=== PATIENT | male | born 1950 | race Caucasian/White ===

== ENCOUNTER 2022-01-09 16:30 | Inpatient (IN) ==
[2022-01-09] MEDS ORDERED: ACETAMINOPHEN 500 MG TABLET PO STA (19:13)
[2022-01-09] MEDS ORDERED: SODIUM CHLORIDE 0.9% 1,000 ML IV STA (19:13)
[2022-01-09 19:32] LABS: Basophils % 0.7 % (0.0-0.8); Eosinophils % 0.7 % (0.00-10.9); Hematocrit 44.7 VOL% (42.0-52.0); Hemoglobin 15.3 GM/DL (14.0-18.0); Immature Granulocytes % 0.7 %; Immature Granulocytes Absolute 0.01 #; Lymphocytes # 0.3 10*3/uL (1.4-4.0); Lymphocytes % 24.1 % (21.2-54.2); Mean Corpuscular HGB Conc 34.2 GM/DL (32-36); Mean Corpuscular Volume 114.9 FL (87-102); Mean Platelet Volume 11.2 FL (9.6-12.0); Monocytes # 0.3 10*3/uL (0.11-0.8); Monocytes % 18.2 % (1.7-12.7); Neutrophils % 55.6 % (38.7-73.9); Platelet Count 99 T/CUMM (130-400); Red Blood Count 3.89 MC/CUMM (3.8-5.5); Red Cell Distribution Width 14.7 % (9.3-17.3); White Blood Count 1.4 T/CUMM (4-12)
[2022-01-09 19:37] LABS: Bilirubin,Urine Negative (Negative); Blood, Urine Trace mg/dL (Negative); Glucose,Urine (UA) Negative (Negative); Ketones,Urine Negative (Negative); Mucus,Urine Occasional /LPF (Occasional); Nitrite,Urine Negative (Negative); Protein,Urine Negative (Negative); RBC,Urine 1 /HPF (0-4); Urine Appearance Clear (Clear); Urine Color Yellow (Yellow); Urine Specific Gravity 1.015 (1.001-1.035); Urine Urobilinogen 0.2 eU/dL (<2.0); Urine pH 5.5 (4.5-8.0)
[2022-01-09 19:53] LABS: Alanine Aminotransferase 25 U/L (16-61); Albumin 3.4 G/DL (3.4-5.0); Alkaline Phosphatase 75 U/L (45-117); Aspartate Amino Transferase 26 U/L (0-37); Bilirubin,Total < 0.39 MG/DL (0.20-1.00); Blood Urea Nitrogen 10 MG/DL (7-18); Calcium 8.6 MG/DL (8.5-10.1); Carbon Dioxide 26 MMOL/L (21-32); Chloride 107 MMOL/L (98-107); Glucose 114 MG/DL (74-106); Osmolality,Calculated 272.8 MOS/KG (273-304); Potassium 4.1 MMOL/L (3.5-5.1); Sodium 137 MMOL/L (136-145); Total Protein 6.4 G/DL (6.4-8.2)
[2022-01-09] MEDS ORDERED: CEFEPIME 1,000 MG in SODIUM CHLORIDE 0.9% 100 ML IV STA (20:04)
[2022-01-09 20:37] LABS: Platelet Estimate Decreased
[2022-01-09] MEDS ORDERED: GLUCAGON 1 MG VIAL IM PRN (21:19)
[2022-01-09] MEDS ORDERED: ONDANSETRON 4 MG/2 ML VIAL IV PRN (21:31)
[2022-01-09] MEDS ORDERED: DEXTROSE 10% 250 ML BAG IV PRN (21:54)
[2022-01-09] MEDS ORDERED: ENOXAPARIN 40 MG/0.4 ML SYRINGE SUBCUT SCH (22:00)
[2022-01-09] MEDS: ZINC GLUCONATE 50 MG TABLET PO SCH (22:58)
[2022-01-09] MEDS: CETIRIZINE 10 MG TABLET PO SCH (22:58)
[2022-01-09] MEDS: CHOLECALCIFEROL 1,000 UNIT TABLET PO SCH (22:58)
[2022-01-09] MEDS: ASCORBIC ACID 500 MG TABLET PO SCH (22:58)
[2022-01-10] MEDS: CEFEPIME 1,000 MG in SODIUM CHLORIDE 0.9% 100 ML IV SCH ×6 (02:27→20:30)
[2022-01-10 05:08] LABS: Hematocrit 36.5 VOL% (42.0-52.0); Hemoglobin 12.2 GM/DL (14.0-18.0); Lymphocytes # 0.3 10*3/uL (1.4-4.0); Mean Corpuscular HGB Conc 33.4 GM/DL (32-36); Mean Corpuscular Volume 118.5 FL (87-102); Mean Platelet Volume 10.8 FL (9.6-12.0); Monocytes # 0.3 10*3/uL (0.11-0.8); Platelet Count 102 T/CUMM (130-400); Red Blood Count 3.08 MC/CUMM (3.8-5.5); Red Cell Distribution Width 14.9 % (9.3-17.3)
[2022-01-10 05:18] LABS: PT Patient Result 10.8 SECS (10.5-12.0)
[2022-01-10 05:27] LABS: Calcium 8.1 MG/DL (8.5-10.1)
[2022-01-10 05:31] LABS: Ferritin 1002.7 ng/mL (26-388)
[2022-01-10 05:42] LABS: Atypical Lymphocytes Few; Eosinophils 2 % (0-10); Lymphocytes 28 % (20-55); Macrocytosis 1+; Total Cells Counted 100
[2022-01-10 05:43] LABS: Ovalocytes Slight; Platelet Estimate Decreased; Polychromasia Slight
[2022-01-10] MEDS: LEVOTHYROXINE 88 MCG TABLET PO SCH (06:33)
[2022-01-10] MEDS: DOCUSATE SODIUM 100 MG CAPSULE PO SCH ×2 (08:59→20:30)
[2022-01-10] MEDS: PANTOPRAZOLE 40 MG TABLET PO SCH (08:59)
[2022-01-10] MEDS: ACETAMINOPHEN 325 MG TABLET PO PRN ×3 (08:59→20:34)
[2022-01-10] MEDS: ASCORBIC ACID 500 MG TABLET PO SCH ×2 (09:00→20:30)
[2022-01-10] MEDS: CHOLECALCIFEROL 1,000 UNIT TABLET PO SCH (09:00)
[2022-01-10] MEDS: ACYCLOVIR 200 MG CAPSULE PO SCH ×2 (09:01→20:34)
[2022-01-10] MEDS: CETIRIZINE 10 MG TABLET PO SCH (09:01)
[2022-01-10] MEDS: ZINC GLUCONATE 50 MG TABLET PO SCH (09:01)
[2022-01-10] MEDS: FILGRASTIM-SNDZ 480 MCG/0.8 ML SYRINGE SUBCUT SCH (09:52)
[2022-01-10] MEDS ORDERED: REMDESIVIR 200 MG in SODIUM CHLORIDE 0.9% 210 ML IV ONE (11:00)
[2022-01-10] MEDS: ROSUVASTATIN 10 MG TABLET PO SCH (20:30)
[2022-01-11] MEDS: CEFEPIME 1,000 MG in SODIUM CHLORIDE 0.9% 100 ML IV SCH ×4 (02:41→20:11)
[2022-01-11] MEDS ORDERED: PHENOL 1.4% THROAT SPRAY 177 ML BOTTLE PO PRN (03:27)
[2022-01-11 04:23] LABS: Basophils % 0.4 % (0.0-0.8); Hematocrit 38.5 VOL% (42.0-52.0); Hemoglobin 12.4 GM/DL (14.0-18.0); Immature Granulocytes % 1.1 %; Immature Granulocytes Absolute 0.05 #; Lymphocytes # 0.8 10*3/uL (1.4-4.0); Lymphocytes % 16.5 % (21.2-54.2); Mean Corpuscular HGB Conc 32.2 GM/DL (32-36); Mean Corpuscular Volume 119.9 FL (87-102); Mean Platelet Volume 10.8 FL (9.6-12.0); Monocytes # 0.5 10*3/uL (0.11-0.8); Monocytes % 10.6 % (1.7-12.7); Neutrophils % 71.4 % (38.7-73.9); Platelet Count 109 T/CUMM (130-400); Red Blood Count 3.21 MC/CUMM (3.8-5.5); Red Cell Distribution Width 14.8 % (9.3-17.3); White Blood Count 4.6 T/CUMM (4-12)
[2022-01-11 04:45] LABS: Calcium 8.4 MG/DL (8.5-10.1); Ferritin 1271.7 ng/mL (26-388); Osmolality,Calculated 280.3 MOS/KG (273-304); Potassium 4.2 MMOL/L (3.5-5.1)
[2022-01-11 04:50] LABS: Band Neutrophils 7 % (0-10); Lymphocytes 12 % (20-55); Nucleated Red Blood Cells 1 (0-5); Platelet Estimate Decreased; Total Cells Counted 100
[2022-01-11] MEDS: LEVOTHYROXINE 88 MCG TABLET PO SCH (05:56)
[2022-01-11] MEDS: ASCORBIC ACID 500 MG TABLET PO SCH ×2 (10:07→20:11)
[2022-01-11] MEDS: PANTOPRAZOLE 40 MG TABLET PO SCH (10:07)
[2022-01-11] MEDS: DOCUSATE SODIUM 100 MG CAPSULE PO SCH ×2 (10:07→20:11)
[2022-01-11] MEDS: CHOLECALCIFEROL 1,000 UNIT TABLET PO SCH (10:08)
[2022-01-11] MEDS: FILGRASTIM-SNDZ 480 MCG/0.8 ML SYRINGE SUBCUT SCH (10:08)
[2022-01-11] MEDS: ZINC GLUCONATE 50 MG TABLET PO SCH (10:09)
[2022-01-11] MEDS: ACYCLOVIR 200 MG CAPSULE PO SCH ×2 (10:09→20:11)
[2022-01-11] MEDS: ACETAMINOPHEN 325 MG TABLET PO PRN (10:09)
[2022-01-11] MEDS: CETIRIZINE 10 MG TABLET PO SCH (10:10)
[2022-01-11] MEDS: REMDESIVIR 100 MG in SODIUM CHLORIDE 0.9% 100 ML IV SCH (11:19)
[2022-01-11] MEDS: ROSUVASTATIN 10 MG TABLET PO SCH (20:11)
[2022-01-12] MEDS: CEFEPIME 1,000 MG in SODIUM CHLORIDE 0.9% 100 ML IV SCH ×2 (03:02→08:08)
[2022-01-12] MEDS: LEVOTHYROXINE 88 MCG TABLET PO SCH (05:38)
[2022-01-12 05:54] LABS: Basophils % 0.6 % (0.0-0.8); Eosinophils % 0.2 % (0.00-10.9); Hematocrit 40.9 VOL% (42.0-52.0); Hemoglobin 13.7 GM/DL (14.0-18.0); Immature Granulocytes % 9.8 %; Immature Granulocytes Absolute 0.63 #; Lymphocytes # 1.2 10*3/uL (1.4-4.0); Lymphocytes % 18.2 % (21.2-54.2); Mean Corpuscular HGB Conc 33.5 GM/DL (32-36); Mean Corpuscular Volume 116.5 FL (87-102); Mean Platelet Volume 11.3 FL (9.6-12.0); Monocytes # 0.7 10*3/uL (0.11-0.8); Monocytes % 10.4 % (1.7-12.7); Neutrophils % 60.8 % (38.7-73.9); Platelet Count 112 T/CUMM (130-400); Red Blood Count 3.51 MC/CUMM (3.8-5.5); Red Cell Distribution Width 14.8 % (9.3-17.3); White Blood Count 6.4 T/CUMM (4-12)
[2022-01-12 06:17] LABS: Band Neutrophils 7 % (0-10); Lymphocytes 14 % (20-55); Total Cells Counted 100
[2022-01-12 06:27] LABS: Calcium 8.3 MG/DL (8.5-10.1); Ferritin 1679.2 ng/mL (26-388); Osmolality,Calculated 277.4 MOS/KG (273-304); Potassium 4.4 MMOL/L (3.5-5.1)
[2022-01-12 07:44] VITALS: BP 119/65
[2022-01-12] MEDS: CHOLECALCIFEROL 1,000 UNIT TABLET PO SCH (08:09)
[2022-01-12] MEDS: PANTOPRAZOLE 40 MG TABLET PO SCH (08:09)
[2022-01-12] MEDS: ASCORBIC ACID 500 MG TABLET PO SCH (08:09)
[2022-01-12] MEDS: REMDESIVIR 100 MG in SODIUM CHLORIDE 0.9% 100 ML IV SCH ×2 (08:09→08:44)
[2022-01-12] MEDS: DOCUSATE SODIUM 100 MG CAPSULE PO SCH (08:09)
[2022-01-12] MEDS: ZINC GLUCONATE 50 MG TABLET PO SCH (08:09)
[2022-01-12] MEDS: ACYCLOVIR 200 MG CAPSULE PO SCH (08:09)
[2022-01-12] MEDS: CETIRIZINE 10 MG TABLET PO SCH (08:09)
== END 2022-01-12 10:16 | disposition home or self-care (01) | DRG 808 ==
LOC: N.ED 16:30 → N.EDINP 22:07 → N.TELES 23:23
PROVIDERS: ADMIT Internal Medicine; ATTEND Internal Medicine